=== PATIENT | female | born 1995 | race American Indian/Alaskan Native ===

== ENCOUNTER 2018-12-08 22:51 | Emergency (ER) | payer OTHER ==
--- NOTE | 2018-12-09 00:05 | Emergency Department Report ---
ED HPI - General Chief complaint: High BP Stated complaint: HIGH BP/19 WKS Time Seen by Provider: 12/08/18 23:50 Source: patient Mode of arrival: Ambulatory Limitations: No Limitations - History of Present Illness Initial comments: 23 yo F, 19 wks 4 days , , presents to the ED with elevated blood pressure. Denies past history of hypertension. States BP has been normal so far throughout her . Pt states she began feeling lightheaded over the last few days, with mild headache so decided to take her blood pressure today. Pt states it was 163/111, and repeat BP was 152/105. Denies abdominal pain or vag bleeding. OB: Dr Claudia MATT Complaint: other (elevated BP) -: days(s) (3) Severity: mild Consistency: constant Improves with: none Worsens with: none Associated symptoms: headache. denies: nausea/vomiting, vaginal bleeding, a bdominal pain Vaginal bleeding: none :: Yes Number of weeks : 19 Pre-emelina care: followed by OB, previous ultrasound confi - Related Data : 1 Para: 0 Allergies Allergy/AdvReac Type Severity Reaction Status Date / Time latex Allergy Hives Verified 11/29/18 12:26 Penicillins Allergy Anaphylaxis Verified 11/29/18 12:26 ED Review of Systems ROS: Stated complaint: HIGH BP/19 WKS Other details as noted in HPI Comment: All other systems reviewed and negative Respiratory: denies: shortness of breath Cardiovascular: denies: chest pain Gastrointestinal: denies: abdominal pain Neurological: headache, other (reports lightheadedness) ED Past Medical Hx - Past Medical History Previous Medical History?: No - Surgical History Past Surgical History?: No - Social History Smoking Status: Former Smoker Substance Use Type: None ED Physical Exam - General Limitations: No Limitations General appearance: alert, in no apparent distress - Head Head exam: Present: atraumatic, normocephalic - Eye Eye exam: Present: normal appearance, PERRL, EOMI - ENT ENT exam: Present: mucous membranes moist - Neck Neck exam: Present: normal inspection - Respiratory Respiratory exam: Present: normal lung sounds bilaterally. Absent: respiratory distress - Cardiovascular Cardiovascular Exam: Present: regular rate, normal rhythm - GI/Abdominal GI/Abdominal exam: Present: soft. Absent: distended, tenderness - Extremities Exam Extremities exam: Present: pedal edema - Neurological Exam Neurological exam: Present: alert, oriented X3, CN II-XII intact. Absent: motor sensory deficit - Psychiatric Psychiatric exam: Present: normal affect, normal mood - Skin Skin exam: Present: warm, dry, intact, normal color ED Course Vital Signs 12/08/18 12/09/18 12/09/18 22:59 00:38 00:45 Temperature 98.3 F Pulse Rate 101 H 84 94 H Respiratory 18 22 17 Rate Blood Pressure 150/84 132/73 O2 Sat by Pulse 99 99 98 Oximetry - Consultations Consultation #1: 12/09/18 01:36 Spoke w/ Dr Sawyer. Ok to d/c home since BP improved and labs normal. States LDH will likely be elevated anyway. Advises pt to take it easy over the weekend and call on Tuesday for an appt. ED Medical Decision Making - Lab Data Result diagrams: 12/08/18 23:57 12/08/18 23:57 - Medical Decision Making - BP improved, last 3 systolic BP readings: 118, 116, 106 - labs unremarkable - spoke w/ Dr Sawyer, have pt call office on for chandrakant - pt reports has scheduled appt on Dec 12 - pt advised to call her OB's office with any concerns over the weekend - return precautions given - Differential Diagnosis hypertension, preeclampsia, elevated BP Critical care attestation.: If time is entered above; I have spent that time in minutes in the direct care of this critically ill patient, excluding procedure time. ED Disposition Clinical Impression: 19 weeks gestation of , Elevated blood pressure reading Disposition: - TO HOME OR SELFCARE Is pt being admited?: No Condition: Stable Instructions: (ED), Pre-eclampsia and Eclampsia (ED) Referrals: VICKI TOBIAS MD [Staff Physician] - 12/11/18 Time of Disposition: 01:38
[2018-12-09 00:13] LABS: Basophils % (Auto) 0.3 % (0.0-1.8); Eosinophils # (Auto) 0.1 K/mm3 (0.0-0.4); Hemoglobin 11.7 gm/dl (10.1-14.3); Lymphocytes # (Auto) 3.3 K/mm3 (1.2-5.4); Lymphocytes % (Auto) 30.1 % (13.4-35.0); Mean Corpuscular HGB Conc 34 % (30-34); Mean Corpuscular Volume 86 fl (79-97); Monocytes # (Auto) 0.7 K/mm3 (0.0-0.8); Monocytes % (Auto) 6.3 % (0.0-7.3); Platelet Count 244 K/mm3 (140-440); Red Blood Count 3.97 M/mm3 (3.65-5.03); Red Cell Distribution Width 14.1 % (13.2-15.2)
[2018-12-09 00:38] LABS: Alanine Aminotransferase 18 units/L (7-56); Albumin 3.3 g/dL (3.9-5); BUN/Creatinine Ratio 8; Blood Urea Nitrogen 4 mg/dL (7-17); Calcium 8.8 mg/dL (8.4-10.2); Hemolysis Index 7
[2018-12-09 00:55] LABS: Bacteria,Urine 1+ /HPF (Negative); Bilirubin,Urine NEG (Negative); Blood,Urine NEG (Negative); Color,Urine Yellow (Yellow); Mucus,Urine FEW /HPF; Protein,Urine <15 mg/dL mg/dL (Negative); Urobilinogen,Urine < 2.0 mg/dL (<2.0); WBC,Urine < 1.0 /HPF (0.0-6.0)
[2018-12-09 01:41] VITALS: BP 117/79
[2018-12-09 02:46] LABS: Uric Acid 4.2 mg/dL (3.5-7.6)
== END 2018-12-09 02:00 | disposition home or self-care (01) ==
LOC: ED 22:51
DX: O16.2 Unspecified maternal hypertension, second trimester (principal); Z88.0 Allergy status to penicillin; Z91.040 Latex allergy status; Z87.891 Personal history of nicotine dependence; Z3A.19 19 weeks gestation of pregnancy
CPT/HCPCS: 36415; 80053; 81001; 83615; 84550; 85025; 99283

== ENCOUNTER 2018-12-24 09:08 | Outpatient (CLI) | payer OTHER ==
[2018-12-24] MEDS ORDERED: TYLENOL PO ONE (09:13)
--- NOTE | 2018-12-24 10:22 | Ultrasound Report ---
Limited OB ultrasound INDICATION: Evaluate placenta after fall. COMPARISON: OB ultrasound from 11/29/2018. FINDINGS: A single live intrauterine is seen with a heart rate of 145 bpm in cephalic presentation. T he placenta is located posteriorly and appears unremarkable. No other acute abnormality is identified . IMPRESSION: Single live intrauterine with an unremarkable sonographic appearance of the placenta. Signer Name: Jorge Montez MD Signed: 12/24/2018 10:17 AM Workstation Name: [id number]
[2018-12-24 10:50] VITALS: BP 119/64
== END 2018-12-24 10:10 | disposition home or self-care (01) ==
LOC: TRG 09:08
PROVIDERS: ATTEND Obstetrics & Gynecology
DX: Z04.3 Encounter for examination and observation following other accident (principal); O99.342 Other mental disorders complicating pregnancy, second trimester; F41.9 Anxiety disorder, unspecified; F32.9 Major depressive disorder, single episode, unspecified; Z3A.21 21 weeks gestation of pregnancy; Z87.891 Personal history of nicotine dependence; Z91.040 Latex allergy status; Z88.0 Allergy status to penicillin; Z91.018 Allergy to other foods; W19.XXXA Unspecified fall, initial encounter; Y93.89 Activity, other specified; Y99.8 Other external cause status; Y92.89 Other specified places as the place of occurrence of the external cause
CPT/HCPCS: 76815

== ENCOUNTER 2018-12-25 18:37 | Emergency (ER) | payer OTHER ==
[2018-12-25 19:09] VITALS: BP 125/72
--- NOTE | 2018-12-25 19:09 | Event Note ---
ED Screening Note ED Screening Note: to er with cp for weeks; but worse today cp sob 22 weeks due 04/25 g1 pmh none rx psh none This initial assessment/diagnostic orders/clinical plan/treatment(s) is/are subject to change based on patients health status, clinical progression and re- assessment by fellow clinical providers in the ED. Further treatment and workup at subsequent clinical providers discretion. Patient/guardian urged not to elope from the ED as their condition may be serious if not clinically assessed and managed. Initial orders include: 125/72 labs/ua/12 [facility] <ORION NEWMAN - Last Filed: 12/25/18 19:07> ED Screening Note: This initial assessment/diagnostic orders/clinical plan/treatment(s) is/are subject to change based on patients health status, clinical progression and re- assessment by fellow clinical providers in the ED. Further treatment and workup at subsequent clinical providers discretion. Patient/guardian urged not to elope from the ED as their condition may be serious if not clinically assessed and managed. Initial orders include: A physician and/or other qualified medical personnel has recommended that the patient receive further examination and/or treatment beyond their Medical Screening Exam. The risks and benefits were explained. The patient was informed of their right to emergency care. Patient left before final disposition of their medical condition. This note has been generated by me, Dr. Austin Angeles III, MD, the [employer] for the emergency department. I have not seen this patient personally. <AUSTIN ANGELES - Last Filed: 12/26/18 16:10>
[2018-12-25 19:33] LABS: Basophils % (Auto) 0.4 % (0.0-1.8); Eosinophils # (Auto) 0.1 K/mm3 (0.0-0.4); Eosinophils % (Auto) 0.9 % (0.0-4.3); Hematocrit 36.6 % (30.3-42.9); Hemoglobin 12.1 gm/dl (10.1-14.3); Lymphocytes # (Auto) 1.1 K/mm3 (1.2-5.4); Lymphocytes % (Auto) 11.1 % (13.4-35.0); Mean Corpuscular HGB Conc 33 % (30-34); Mean Corpuscular Volume 86 fl (79-97); Monocytes # (Auto) 1.1 K/mm3 (0.0-0.8); Monocytes % (Auto) 10.6 % (0.0-7.3); Platelet Count 234 K/mm3 (140-440); Red Blood Count 4.27 M/mm3 (3.65-5.03); Red Cell Distribution Width 13.8 % (13.2-15.2)
[2018-12-25 19:47] LABS: INR 0.97 (0.87-1.13)
[2018-12-25 19:48] LABS: Partial Thromboplastin Time 25.8 Sec. (24.2-36.6)
[2018-12-25 19:57] LABS: Alanine Aminotransferase 20 units/L (7-56); Albumin 3.5 g/dL (3.9-5); BUN/Creatinine Ratio 10; Blood Urea Nitrogen 5 mg/dL (7-17); Calcium 9.3 mg/dL (8.4-10.2); Hemolysis Index 43; Uric Acid 4.7 mg/dL (3.5-7.6)
[2018-12-25 20:11] LABS: Bacteria,Urine 2+ /HPF (Negative); Bilirubin,Urine NEG (Negative); Blood,Urine NEG (Negative); Color,Urine Yellow (Yellow); Mucus,Urine FEW /HPF; Protein,Urine <15 mg/dL mg/dL (Negative); Urobilinogen,Urine < 2.0 mg/dL (<2.0)
== END 2018-12-25 21:50 | disposition left against medical advice (07) ==
LOC: TRG 18:37 → ED 18:37 → TRG 18:37 → ED 18:37 → EDSTATUS 18:42 → ED 21:50
DX: O99.512 Diseases of the respiratory system complicating pregnancy, second trimester (principal); R07.89 Other chest pain; Z3A.22 22 weeks gestation of pregnancy; Z53.21 Procedure and treatment not carried out due to patient leaving prior to being seen by health care provider
CPT/HCPCS: 36415; 80053; 81001; 84550; 85025; 85610; 85730; 93005; 93010